=== PATIENT | male | born 1935 | race Caucasian/White ===

== ENCOUNTER 2016-12-21 10:50 | Day surgery (SDC) | payer MEDICARE, BC ==
[~2016-12-21] VITALS: Ht 182.9 cm; Wt 79.5 kg
--- NOTE | ~2016-12-21 | CATH ---
Cardiac Diagnostic Report Demographics Patient Name ANGEL CORTEZ Gender Male J Date of 1935 Age 81 year(s) Patient Number [id number] Date of Study 12/21/2016 Visit Number [id number] Room Number Corporate ID Ht 177.8 cm Wt 78.02 kg Accession Number [id number] BSA 1.96 m kg/m Referring Pedro Pablo Smalls MD Primary Physician Physician Performing King Joaquin Dial MD Secondary Physician Physician Diagnostic King Joaquin Dial MD Assisting Physician Physician Interventional Physician Fuel Manager Physician Findings and Conclusions Diagnostic Findings and Conclusion Non-obstructive CAD Non-ischemic cardiomyopathy EF of 20% Diagnostic Recommendations Medical management Procedure Description The patient was brought to the diagnostic cardiac catheterization-EP laboratory in the fasting, non-sedated state. Informed consent was obtained in the written and verbal form after the risks and benefits were explained. The patient had no further questions and agreed to proceed. The planned puncture-incision site(s) were shaved and prepped with ChloraPrep and draped in the usual sterile manner. Conscious sedation, supplemental oxygen, and pain control medications were delivered by a registered nurse under physician guidance. Surface ECG rhythm, blood pressure measurement, and pulse oximetry were monitored throughout the procedure. Arterial access. The access site was infiltrated with lidocaine. The vessel was entered with the Seldinger technique. A 5F radial sheath was advanced into the vessel and used for catheter placement. Selective left coronary angiography. A TIG catheter was advanced into the left coronary vessel ostium under Fluoroscopic guidance. Contrast was injected by hand. Images were obtained in multiple projections. Selective right coronary angiography. A TIG catheter was advanced into the right coronary vessel ostium under fluoroscopic guidance. Contrast was injected by hand. Images were obtained in multiple projections. Left heart catheterization with ventriculography. A catheter was advanced across the aortic valve to the left ventricle under fluoroscopic guidance. Resting hemodynamics were obtained. With the catheter at the left ventricular apex, contrast was injected. Images were obtained in HONDURAN projections. Post-ventriculography LV pressure was obtained. The catheter was gradually withdrawn into the aorta with continuous pressure recording. Arterial artery hemostasis was achieved. The patient was transferred to [facility] via cart accompanied by a nurse. The patient left the laboratory in stable condition. Diagnostic Cath Status: Elective Procedure Procedure Type Diagnostic procedure:Angiography:, Coronary Angios, LHC, Diagnostic Heart Cath SF Indications: Atrial fibrillation and Cardiomyopathy. Complications: Non complication. Angiographic Findings Dominance: Right Cardiac Arteries and Lesion Findings LMCA: Normal (0% Stenosis). LAD: Abnormal. Lesion on Prox LAD: Proximal subsection.30% stenosis . Pre procedure LAURA III flow was noted. The lesion was diagnosed as a low risk lesion. LCx: Normal (0% Stenosis). RCA: Normal (0% Stenosis). Ramus: Normal (0% Stenosis). Coronary Tree Procedure Data Procedure Date Date: 12/21/2016Start: 01:12 PMEnd: 01:32 PM Entry Locations - Retrograde Percutaneous access was performed through the Right Radial artery. A 6 Fr sheath was inserted. Closure Comments: Hemostasis achieved. Procedure Medications Order and Administration + + +-------+-------+ !Time !Medication !Dosage !Route ! + + +-------+-------+ !12/21/2016 !Versed !1 mg !I.V. ! !01:11 PM ! ! ! ! + + +-------+-------+ !12/21/2016 !Fentanyl !25 mcg !I.V. ! !01:12 PM ! ! ! ! + + +-------+-------+ !12/21/2016 !Fentanyl !25 mcg !I.V. ! !01:14 PM ! ! ! ! + + +-------+-------+ !12/21/2016 !Versed !1 mg !I.V. ! !01:14 PM ! ! ! ! + + +-------+-------+ !12/21/2016 !SF Radial Cocktail: 200mcg Nitro, 2.5 mg ! ! ! !01:15 PM !Verapamil, 5000u Heparin ! ! ! + + +-------+-------+ Devices Used - A6F TIG CATHETER. Comments: Used for angiography of LCA and RCA. Contrast Material - Isovue 14336 ml Fluoroscopy Time: Diagnostic: 999:59 minutes. Total: 999:59 minutes. Medical History Risk Factors The patient risk factors include:cerebrovascular disease, treated hypertension, last creatinine: 1.1 mg/dl, creatinine clearance: 59.1 ml/min, former tobacco use and prior heart failure . Admission Data Admission Date: 12/21/2016 Admission Time: 10:50 AM Arrival Date: 12/21/2016 Arrival Time: 01:00 PM Insurance Payors: Medicare. Clinical Evaluation Leading to Procedure [facility] Ventriculography Findings EF of 20% LV function assessed as:Abnormal. Hemodynamics Condition: Rest O2 Consumption: Estimated: 236.53Heart Rate: 87 bpm Pressures (mmHg) +-----+ + !Site !Pressure ! +-----+ + !LV !130/3 ,3 ! +-----+ + !AO !121/83 (100) ! +-----+ + !LV !137/-1 ,1 ! +-----+ + Valve Gradients and Areas + +---------+---------+---------+ +---------+ + !Valve !Peak !Mean !Area !Index !Flow !Source ! + +---------+---------+---------+ +---------+ + !Aortic !12 !11 ! ! ! ! ! + +---------+---------+---------+ +---------+ + !Aortic !12 !11 ! ! ! ! ! + +---------+---------+---------+ +---------+ + Shunts Oxygen Values O2 Consumption 236.53 Signatures
[~2016-12-21 10:50] MED LIST: ELIQUIS5 MG PO; LOPRESSOR DPS50 MG PO
== END 2016-12-21 16:45 | disposition home or self-care (01) ==
LOC: SSS 10:50
DX: I25.10 Atherosclerotic heart disease of native coronary artery without angina pectoris (principal); I48.1 Persistent atrial fibrillation; I11.9 Hypertensive heart disease without heart failure; J44.9 Chronic obstructive pulmonary disease, unspecified; I42.9 Cardiomyopathy, unspecified; Z87.891 Personal history of nicotine dependence; Z98.890 Other specified postprocedural states

== ENCOUNTER 2017-01-19 05:19 | Day surgery (SDC) | payer MEDICARE, BC ==
[~2017-01-19] VITALS: Ht 182.9 cm; Wt 77.7 kg
--- NOTE | 2017-01-25 15:58 | CVR ---
ADMIT: 01/19/2017 RM/LOC: [facility] MR#: [id number] [address] [id number] [address]TI[address] [place] [address] Cardioversion Report SEX: M AGE: 81 : 1935 DATE: 01/19/2017 PROCEDURE: DC cardioversion. INDICATIONS: The patient is an 81-year-old male who had a recent history of atrial fibrillation and cardiomyopathy. Today he was scheduled for cardioversion to see if he had improvement in his symptoms. PROCEDURE IN DETAIL: After obtaining informed consent, the patient was sedated under Anesthesia's direction. Once adequate sedation was achieved, he then had a 100 joule synchronized cardioversion, which was successful converting him to sinus rhythm. ASSESSMENT AND PLAN: I am going to change the patient from Coreg to sotalol 80 mg b.i.d. with an EKG tomorrow and Monday to make sure his QTc has not changed. We will then see him in followup in the next 4-6 weeks. If he remains in sinus rhythm and feels better, we will continue trying to promote sinus rhythm. If not, we may allow him to be back in atrial fibrillation if this occurs. Joaquin Mcneal MD/ cee JOB #: [id number] CC: Joaquin Mcneal, Attending Physician Nyla Chong, Family Physician
== END 2017-01-19 09:54 | disposition home or self-care (01) ==
LOC: SSS 05:19
DX: I48.1 Persistent atrial fibrillation (principal); I42.9 Cardiomyopathy, unspecified; I10 Essential (primary) hypertension; J44.9 Chronic obstructive pulmonary disease, unspecified; Z86.73 Personal history of transient ischemic attack (TIA), and cerebral infarction without residual deficits; Z98.890 Other specified postprocedural states; Z87.891 Personal history of nicotine dependence; Z79.899 Other long term (current) drug therapy